=== PATIENT | male | born 1980 | race Caucasian/White ===

== ENCOUNTER 2024-12-23 15:21 | Emergency (ER) | payer SELFPAY ==
--- NOTE | ~2024-12-23 | XR_ITS ---
EXAMINATION: XR TIBIA AND FIBULA, RIGHT CLINICAL INFORMATION: overlying skin wound s/p surgery COMPARISON: None available. TECHNIQUE: AP and lateral views of the right tibia and fibula were obtained. FINDINGS: Appearing sideplate screws are in place in the proximal tibia. Anterior plate and screws also fix the proximal tibia. Interference screws are in place related to ACL reconstruction. Hardware appears intact. There is no abnormal lucency at the bone metal interfaces. There is moderate narrowing of the lateral joint space and mild narrowing of the medial joint space. There are small to medium sized marginal osteophytes. There is a moderate enthesophyte or heterotopic ossification at the inferior pole patella. Faint fracture line remains evident centrally in the proximal tibia on the frontal view. There is low in bone mineral density in the proximal fibula, proximal tibia, and at the medial and lateral margins of the distal femur. XR/XR tibia fibula RT 2V IMPRESSION: Low bone mineral density of the proximal tibia and fibula and medial lateral margins of the distal femur is probably related to disuse and/or healing but osteomyelitis is not ruled out as a contributes fracture. ACL reconstruction and ORIF proximal tibia. Electronically signed by: Asad Parks MD 12/23/2024 04:05 PM EDT
[2024-12-23 15:27] VITALS: BP 124/49; PULSE 74; RESP 16; TEMP 36.9; O2SAT 100; BMI 25.4
--- NOTE | 2024-12-23 15:29 | ED_ITS ---
HPI - Extremity Injury (Lower) General Chief Complaint: Skin/Abscess/Foreign Body Stated Complaint: Foot infection, recent surgery Time Seen by Provider: 12/23/24 16:34 Source: patient and crm coordinator (all interactions with this patient were facilitated with an [facility] dye house worker) Mode of arrival: ambulatory Limitations: language barrier (all interactions with this patient were facilitated with an [facility] dye house worker) History of Present Illness ED Provider: Lana Judd PA-C HPI Narrative: Patient is a 44 year old assigned male at with a history of ORIF and tendon repair of his right tibial on 11/13/2024 at [facility] by Dr. Boucher presenting to the emergency department today with surgical wound healing concerns. Patient states that ever since his min were removed from the surgical wound it has been leaking some and he is worried about it. Patient states that he has been cleaning it with hydrogen peroxide and spraying water directly into the wound. Patient states that he has an appointment with his orthopedist on 12/30/2024. Patient denies any dizziness, lightheadedness, abdominal pain, nausea, vomiting, fever, chills, blurry vision, double vision, loss of vision, chest pain, difficulty breathing, shortness of breath, back pain, night sweats, pain with urination, increased urinary frequency, increased urinary urgency, blood in his urine or stool, syncope or a near syncopal episode, recent trauma or falls, bowel incontinence, bladder incontinence, or any other complaints at this time. MD complaint: other (Wound Drainage) Relieving factors: nothing Other symptoms: none Related Data Allergies Allergy/AdvReac Type Severity Reaction Status Date / Time No Known Allergies Allergy Verified 12/23/24 15:29 Review of Systems 2 Constitutional: Constitutional: Reports no additional constitutional complaints, Denies chills, Denies fever(s) and Denies night sweats Eyes: Eyes: Reports no additional eye complaints, Denies blurry vision, Denies change in vision, Denies diplopia, Denies eye discharge, Denies loss of vision and Denies eye pain ENT: Denies dizziness Cardiovascular: Cardiovascular: Reports no additional cardiovascular complaints, Denies chest pain, Denies lightheadedness, Denies Loss of Consciousness and Denies dyspnea Respiratory: Respiratory: Reports no additional respiratory complaints and Denies dyspnea Gastrointestinal: Gastrointestinal: Reports no additional gastrointestinal complaints, Denies abdominal pain, Denies melena, Denies hematochezia, Denies change in bowel habits and Denies change in stool character Genitourinary: Genitourinary: Reports no additional male genitourinary complaints, Denies hematuria, Denies oliguria, Denies difficulty urinating, Denies dysuria, Denies urinary frequency, Denies urinary hesitancy, Denies urinary incontinence and Denies urinary urgency Musculoskeletal: Musculoskeletal: Reports no additional musculoskeletal complaints, Denies numbness and Denies tingling Comments: right lower extremity post-op wound drainage Neurologic: Denies dizziness, Denies loss of vision, Denies numbness and Denies tingling Psychiatric: Psychiatric: Reports no additional psychiatric complaints Endocrine: Endocrine: Reports no additional endocrine complaints Hematologic/Lymphatic: Hematologic/Lymphatic: Reports no additional hematologic/lymphatic complaints Allergic/Immunologic: Allergic/Immunologic: Reports no additional allergic/immunologic complaints PMFSH Past Medical History Attestation statement: The following information was validated with the patient. Source: old records reviewed and nursing notes reviewed Social History Social History Advance Directives: No Advance Directives Information Provided: Yes Physical Exam 2 Vital Signs: Vital Signs: Last Vital Signs Temp 98.6 F 12/23/24 17:32 Pulse 72 12/23/24 17:32 Resp 16 12/23/24 17:32 BP 112/68 12/23/24 17:32 Pulse Ox 98 12/23/24 17:32 O2 Del Method Room Air 12/23/24 17:32 BMI result Body Mass Index 25.4 Const: General: cooperative, no acute distress, alert and awake Nutritional Appearance: well nourished Orientation/consciousness: patient oriented x3 HEENT: Head: Yes normal to inspection and Yes atraumatic Ears: hearing grossly normal bilaterally and external ears normal General nose exam: Normal external nose present, no nasal discharge noted and no epistaxis Face and sinus: Yes normal facial exam, No abrasion and No laceration Mouth: Normal oral and palatal mucosa present, no drooling and no muffled voice Eyes: General: appearance normal, both eyes and all related structures P eriorbital: periorbital findings normal Eyelids: Yes eyelids normal C onjunctivae: conjunctivae normal Pupils: Equal, round and reactive pupils present EOM: EOMs intact bilaterally Neck: Neck: Yes normal visual inspection, Yes full ROM and Yes no lymphadenopathy Resp: Effort & Inspection: normal respiratory effort and able to speak in complete sentences Neuro: General: patient oriented x3, moves all extremities and CN's II-XI intact bilaterally Cranial nerves: Yes Equal, round and reactive pupils present Cognition (Neuro): normal cognition Extrem: Other: General: Yes full ROM and Yes capillary refill normal Psych: Appearance: grossly normal Mental Status: mental status grossly normal Affect: normal affect Attitude: cooperative Thought process: N ormal thought process present Thought content: Normal thought content present Insight: Good insight present (Psych) Course Course Course Narrative: 12/23/24 1529 MADISON Farfan This is a Rapid Medical Examination (RME) performed by Rayshawn Parsons PA-C in triage. Full HPI, ROS, assessment and treatment plan per primary provider in the Main ED. Hx: 44 yo M here for eval of open wound to right fernandez s/p surgery in october. reports fracture to right tib/fib w/ plate placed. had min removed outpatient, now has open wound to right fernandez that has been draining fluid. concerned for infection. Plan: labs, xr Medical Decision Making Medical Decision Making MDM Narrative: Patient is a 44 year old assigned male at with a history of ORIF and tendon repair of his right tibial on 11/13/2024 at [facility] by Dr. Boucher presenting to the emergency department today with surgical wound healing concerns. Patient's physical exam was as noted in the physical exam portion of this note. Patient's blood work was unremarkable. Patient's right tib fib x-ray showed no acute process. I called and spoke with Dr. Boucher who recommended normal wound care (no aggressive washing or hydrogen peroxide), no PO or IV ABX, no transfer, and following up with his office as scheduled on 12/30/2024. I explained my physical exam findings as well as all test results to the patient. I answered all questions asked by the patient. I applied a non-stick gauze to the wound with fluff gauze over top and wrapped it loosely with web roll gauze. Patient's PMS was intact prior to and after dressing. I explained to the patient that he should keep the wound dry and perform every other day dressing changes. Patient was provided supplies for dressing changes. I stressed the importance of the patient taking his medication as directed (either prescribed or as the over the counter packaging recommends). I stressed the importance of the patient following up with his primary care provider and Dr. Boucher - his orthopedist, as scheduled. I stressed the importance of the patient returning to the emergency department immediately if his symptoms were to worsen or if he were to develop any dizziness, shortness of breath, difficulty breathing, chest pain, blurry vision, loss of vision, nausea, vomiting, abdominal pain, fever, chills, back pain, or any other complaints. Patient verbalized agreement and understanding with this treatment plan and discharge. Differential Diagnosis Differential Diagnoses: The differential diagnosis associated with the presentation includes Post-op wound check Post-op wound drainage Admission/Observation Consideration of admission/observation: Escalation of care including admission/observation considered Patient would have been admitted to the hospital had his work up had any findings where hospital admission was appropriate and his clinical presentation warranted hospital admission. Consult Healthcare Provider Management of the patient was discussed with: Coffee Grower (Spoke with Dr. Boucher - the operating orthopedist, as noted in the MDM Rationale portion of this note. ) Lab Data [facility] Lab Attestation statement: I reviewed the patient's lab results. My interpretation of these results are in the MDM Rationale portion of this note. 12/23/24 15:58 12/23/24 15:58 Labs: Lab Results 12/23/24 Range/Units 15:58 WBC 7.2 (4.8-10.8) X10*3/uL RBC 5.17 (4.60-5.80) X10*6/uL Hgb 16.1 (14.0-18.0) g/dl Hct 47.5 (42.0-52.0) % MCV 91.9 (80.0-98.0) fL MCH 31.1 (27.0-33.0) pg MCHC 33.9 (31.0-36.0) g/dl RDW 11.9 (11.0-16.0) % Plt Count 222 (160-400) X10*3/uL MPV 11.7 (9.4-12.4) fL Immature Gran % (Auto) 0.6 H (0.0-0.4) % Neut % (Auto) 49.6 (45-73) % Lymph % (Auto) 38.4 (20-40) % [place] % (Auto) 8.1 (2-11) % Eos % (Auto) 2.7 (0-4) % Baso % (Auto) 0.6 (0-2) % Lymph # (Auto) 2.8 (1.2-4.9) X10*3/uL [place] # (Auto) 0.6 (0.1-1.2) X10*3/uL Eos # (Auto) 0.2 (0.0-0.4) X10*3/uL Baso # (Auto) 0.0 (0.0-0.2) X10*3/uL Abs Immat Gran (auto) 0.04 H (0.00-0.03) X10*3/uL Absolute Neuts (auto) 3.6 (2.0-8.3) x10*3/uL Absolute Nucleated RBC 0.000 (0.0-0.012) X10*3/uL Nucleated RBC % (auto) 0.0 (0.0-0.2) /100WBC ESR 6 (0-15) MM/HR Sodium 142 (135-145) mmol/L Potassium 4.1 (3.3-5.1) mmol/L Chloride 104 (96-108) mmol/L Carbon Dioxide 30 H (22-29) mmol/L Anion Gap 12 (12-20) BUN 12 (9-16) mg/dL Creatinine 0.78 (0.5-1.4) mg/dL Estim Creat Clear Calc 114.1 Estimated GFR > 60 Random Glucose 83 (60-115) mg/dL Calcium 9.6 (8.4-10.2) mg/dL Total Bilirubin 0.5 (0.0-1.0) mg/dL AST 27 (5-37) U/L ALT 23 (0-40) U/L Alkaline Phosphatase 79 (39-117) U/L C-Reactive Protein 0.22 (< or = 0.50) mg/dL Total Protein 7.6 (6.5-8.0) g/dL Albumin 4.6 (3.5-5.0) g/dL Independent Interpretation I performed an independent interpretation of an: Plain X-Ray Interpretation: My interpretation is in agreement with the radiologist's impression of this imaging study. L EXAMINATION: XR TIBIA AND FIBULA, RIGHT CLINICAL INFORMATION: overlying skin wound s/p surgery COMPARISON: None available. TECHNIQUE: AP and lateral views of the right tibia and fibula were obtained. FINDINGS: Appearing sideplate screws are in place in the proximal tibia. Anterior plate and screws also fix the proximal tibia. Interference screws are in place related to ACL reconstruction. Hardware appears intact. There is no abnormal lucency at the bone metal interfaces. There is moderate narrowing of the lateral joint space and mild narrowing of the medial joint space. There are small to medium sized marginal osteophytes. There is a moderate enthesophyte or heterotopic ossification at the inferior pole patella. Faint fracture line remains evident centrally in the proximal tibia on the frontal view. There is low in bone mineral density in the proximal fibula, proximal tibia, and at the medial and lateral margins of the distal femur. XR/XR tibia fibula RT 2V IMPRESSION: Low bone mineral density of the proximal tibia and fibula and medial lateral margins of the distal femur is probably related to disuse and/or healing but osteomyelitis is not ruled out as a contributes fracture. ACL reconstruction and ORIF proximal tibia. Electronically signed by: Asad Parks MD 12/23/2024 04:05 PM EDT RP Dictated By: Asad Parks MD Signed By: Electronically signed by Asad Parks MD 12/23/24 1604 Radiology Impression Discussion of test interpretation with radiology: I have reviewed the radiologist's reading. Critical Care Time Critical Care Time Critical Care Time: Yes Total Critical Care Time: 34 Attestation: I spent 34 minutes of Critical Care Time with this patient. This does not include time spent on separately reported billable procedures. Discharge Plan Discharge Clinical Impression: Nonhealing surgical wound Patient Disposition: Home, Self-Care Additional Instructions: Follow up with your orthopedic surgeon at [place] as scheduled. Perform dressing changes every other day. Do NOT get the affected area wet. Follow up with your primary care provider. Return to the emergency department immediately if your symptoms worsen or if you develop any dizziness, shortness of breath, difficulty breathing, chest pain, blurry vision, loss of vision, nausea, vomiting, abdominal pain, fever, chills, back pain, or any other complaints. Acuda a moore becki de seguimiento con moore cirujano ortop?dico en [place] seg?n lo programado. Cambie el vendaje cada dos d?as. No moje la alma afectada. Marisol?seguimiento?con moore m?dico de atenci?n primaria. Acuda inmediatamente al servicio de urgencias si hari s?ntomas empeoran o si presenta falta de aliento, dificultad para respirar, dolor tor?cico, mareos, aturdimiento, dolor de espalda, dolor abdominal, fiebre, escalofr?os o cualquier otro s?ntoma. Please see the information below about our Patient Portal. If you are not yet enrolled in the [facility] Patient Portal, you will receive an enrollment email invitation following your visit to any [facility]/formerly [facility] setting. You may also self-enroll in the Patient Portal by visiting our website: [email or web address] The following information is required to access the Patient Portal: - Your [facility] Medical Record Number - Your personal home email address (must match what is in your electronic medical record, Registration staff can assist with this) - Name - Date of Capabilities of the Patient Portal: - Message some providers - View upcoming appointments - Access your health summary, medical history, and visit history - View current conditions and allergies - View procedure and lab results - View your medications, including guidelines, side effects, and precautions - Complete pre-appointment questionnaires requested by your provider - Ready summary reports of your office visits and procedures To access the Patient Portal Mobile Liliana, follow these directions: - Search [employer] in the Liliana Store or Spool Store - Download the Liliana - Search for [facility] - Enter your login/password Portal del paciente Si usted no esta inscrito en el portal de pacientes de [facility], recibira levi invitacion de inscripcion despues de moore visita al [facility] o al [facility] via correo electronico. Tambien puede inscribirse voluntariamente en el portal de pacientes visitando nuestra pagina web: [email or web address] La siguiente informacion sera requerida para acceder al portal: - Moore cosmo de historia medica de [facility] - Moore direccion de correo electronico personal - Nombre - Fecha de nacimiento Capacidades: Las siguientes capacidades estan disponibles en el portal de pacientes: - Enviar mensajes a algunos doctores - Verificar proximas citas - Acceso a moore historial de [place], registro medico e historial de visitas - Gianna las condiciones actuales y alergias gianna procedimientos y resultados del laboratorio - Gianna hari medicamentos, incluyendo las pautas - Efectos secundarios y precauciones - Completar o llenar formularios / cuestionarios de - Citas solicitadas por moore doctor - Leer los resumenes de reportes medicos de hari visitas y procedimientos Rudolph acceder a la aplicacion movil: - Busque [email or web address] en la Liliana Store o Google eTukTuk Store - Descargue la aplicacion - Busque [facility] - Ingrese moore nombre de usuario / Contrasena Referrals: [facility] Family Medicine [Provider Group] (Call to establish and follow up with a primary care provider. If you already have a primary care provider, please follow up with them. Llame para establecer contacto con un m?dico de cabecera y darle seguimiento. Si ya tiene un m?dico de cabecera, por favor, contacte con ?l.) [facility] Primary Care, [place] [Provider Group] (Call to establish and follow up with a primary care provider. If you already have a primary care provider, please follow up with them. Llame para establecer contacto con un m?dico de cabecera y darle seguimiento. Si ya tiene un m?dico de cabecera, por favor, contacte con ?l.) [facility] Primary Care, [place] [Provider Group] (Call to establish and follow up with a primary care provider. If you already have a primary care provider, please follow up with them. Llame para establecer contacto con un m?dico de cabecera y darle seguimiento. Si ya tiene un m?dico de cabecera, por favor, contacte con ?l.) [facility] Primary Care, [facility] [Provider Group] (Call to establish and follow up with a primary care provider. If you already have a primary care provider, please follow up with them. Llame para establecer contacto con un m?dico de cabecera y darle seguimiento. Si ya tiene un m?dico de cabecera, por favor, contacte con ?l.) [facility] Primary Care, [place] [Provider Group] (Call to establish and follow up with a primary care provider. If you already have a primary care provider, please follow up with them. Llame para establecer contacto con un m?dico de cabecera y darle seguimiento. Si ya tiene un m?dico de cabecera, por favor, contacte con ?l.) Interventions: ED Discharge Assessment Last Done: 12/23/24 17:32 Discharge Date/Time: 12/23/24 17:33 Print Language: [place] Citizen
[2024-12-23 15:39] VITALS: BP 112/68; PULSE 68; RESP 17; TEMP 36.8; O2SAT 97
[2024-12-23 16:08] LABS: Basophils Percent Auto 0.6 % (0-2); Eosinophils Absolute Auto 0.2 X10*3/uL (0.0-0.4); Eosinophils Percent Auto 2.7 % (0-4); Hematocrit 47.5 % (42.0-52.0); Hemoglobin 16.1 g/dl (14.0-18.0); Imm Gran Abs Auto 0.04 X10*3/uL (0.00-0.03); Imm Gran Pct Auto 0.6 % (0.0-0.4); Lymphocytes Absolute Auto 2.8 X10*3/uL (1.2-4.9); Lymphocytes Percent Auto 38.4 % (20-40); MANUAL DIFF FLAG NO; Mean Corpuscular HGB Conc 33.9 g/dl (31.0-36.0); Mean Corpuscular Hemoglobin 31.1 pg (27.0-33.0); Mean Corpuscular Volume 91.9 fL (80.0-98.0); Mean Platelet Volume 11.7 fL (9.4-12.4); Monocytes Absolute Auto 0.6 X10*3/uL (0.1-1.2); Monocytes Percent Auto 8.1 % (2-11); Neutrophils Absolute Auto 3.6 x10*3/uL (2.0-8.3); Neutrophils Percent Auto 49.6 % (45-73); Platelet Count 222 X10*3/uL (160-400); Red Blood Count 5.17 X10*6/uL (4.60-5.80); Red Cell Distribution Width 11.9 % (11.0-16.0); White Blood Count 7.2 X10*3/uL (4.8-10.8)
[2024-12-23 16:25] LABS: Alanine Aminotransferase 23 U/L (0-40); Albumin Level 4.6 g/dL (3.5-5.0); Alkaline Phosphatase 79 U/L (39-117); Anion Gap 12 (12-20); Aspartate Amino Transferase 27 U/L (5-37); Bilirubin Total 0.5 mg/dL (0.0-1.0); Blood Urea Nitrogen 12 mg/dL (9-16); Calcium 9.6 mg/dL (8.4-10.2); Carbon Dioxide 30 mmol/L (22-29); Chloride 104 mmol/L (96-108); Creatinine Clr Calc Pharmacy 114.1; Estimated Glomerular Filt Rate > 60; Glucose Random 83 mg/dL (60-115); Potassium 4.1 mmol/L (3.3-5.1); Sodium 142 mmol/L (135-145); Total Protein 7.6 g/dL (6.5-8.0)
--- OUTSIDE RECORDS SUMMARY | 2024-12-23 16:37 | XMS_ITS | Encounter Summary ---
Author Organization [facility] Address [address] [place] [address] Care Team Providers Care Hand Or Machine Paster Name Role Phone Zbigniew Covarrubias MD Primary Care Provider [phone] Encounter Details Date Type Department Care Team ([facility] Contact Info) Description 11/13/2024 Referral Triage [facility] Health Worker Program [address] [place] [phone] Kathi Diane Social History Tobacco Use Types Packs/Day Years Used Date Smoking Tobacco: Every Day Smokeless Tobacco: Never Alcohol Use Standard Drinks/Week Comments Not Currently 0 (1 standard drink = 0.6 oz pur e alcohol) Interpersonal Safety Answer Date Record ed Physical Abuse 11/13/2024 Verbal Abuse 11/13/2024 Sex and Gender Information Value Date Recorded Sex Assigned at Male 11/30/2024 2:36 PM EDT Legal Sex Male 8:52 PM EST Gender Identity Not on file Sexual Orientation Not on file documented as of this encounter Progress Notes * Kathi Diane - 11/13/2024 8:56 AM EDT Referral triage: Assigned to Bonnie ([place]) pt unable to afford medications. No insurance. Kathi Diane Community Health Worker (CHW) Order Entry Administrator/Regional documented in this encounter Plan of Treatment Upcoming Encounters Date Type Department Care Team ([facility] Contact Info) Description 12/30/2024 10:45 AM EDT Office Visit Orthopedic Surgery - [place] [address] [place] [phone] Aric Boucher MD [address] [place], [place] [id number] 05/27/2025 2:00 PM EST Clinical Support Adult [facility] - [place] [address] [place] [phone] documented as of this encounter Visit Diagnoses Not on filedocumented in this encounter Care Teams Hand Or Machine Paster Relationship Specialty Start Date End Date Zbigniew Covarrubias MD [address] [place] [address] PCP - General 06/06/23 documented as of this encounter
[2024-12-23 17:00] LABS: C Reactive Protein 0.22 mg/dL (< or = 0.50)
[2024-12-23 17:30] VITALS: BP 112/68; PULSE 72; RESP 16; TEMP 37; O2SAT 98
[2024-12-23 17:32] VITALS: BP 112/68; PULSE 72; RESP 16; TEMP 37; O2SAT 98
[2024-12-23 17:32] LABS: Erythrocyte Sedimentation Rate 6 MM/HR (0-15)
== END 2024-12-23 17:33 | disposition home or self-care (01) ==
PROVIDERS: Physician Assistant Medical; Emergency Provider Emergency Medicine
DX: T81.89XA Other complications of procedures, not elsewhere classified, initial encounter (principal); Y83.8 Other surgical procedures as the cause of abnormal reaction of the patient, or of later complication, without mention of misadventure at the time of the procedure; Y92.9 Unspecified place or not applicable
CPT/HCPCS: 36415; 73590; 80053; 85025; 85652; 86140; 99283

== ENCOUNTER → 2024-12-23 15:30 | Outpatient (BNV) | payer SELFPAY | PROVIDERS: Emergency Provider Emergency Medicine; Visit Provider Radiology Diagnostic Radiology | DX: M17.11 Unilateral primary osteoarthritis, right knee (principal) | CPT/HCPCS: 73590 ==